=== PATIENT | male | born 1980 | race Two or more races ===

== ENCOUNTER 2019-06-21 04:42 | Emergency (ER) | payer OTHER, MEDICAID ==
[~2019-06-21] VITALS: Ht 167.6 cm; Wt 74.8 kg
[2019-06-21 04:50] VITALS: BP 147/94
== END 2019-06-21 07:50 | disposition home or self-care (01) ==
LOC: EDBD 04:42 → ER 04:42
DX: S80.01XA Contusion of right knee, initial encounter (principal); S60.222A Contusion of left hand, initial encounter; S20.219A Contusion of unspecified front wall of thorax, initial encounter; V43.62XA Car passenger injured in collision with other type car in traffic accident, initial encounter; Y93.89 Activity, other specified; Y99.8 Other external cause status; Y92.410 Unspecified street and highway as the place of occurrence of the external cause
CPT/HCPCS: 71250; 73130; 73562